=== PATIENT | male | born 1985 | race Hispanic/Latino ===

== ENCOUNTER 2019-10-09 04:07 | Emergency (ER) | payer SELFPAY ==
[2019-10-09 04:08] VITALS: BP 126/81; PULSE 72; RESP 22; TEMP 37; O2SAT 100; BMI 24.4
--- NOTE | 2019-10-09 04:21 | ED.DCSUM_ITS ---
History of Present Illness Chief Complaint: Flank Pain Informant: Patient Narrative: Patient presents with left-sided flank pain that woke him up from sleep just prior to arrival. He has a history of kidney stones, last kidney stone was a few years ago. He has no fever chills cough or congestion. He denies any dysuria or radiation to his testicle at this time he does not have any abdominal pain. He has no chest pain or shortness of breath. Pain is sharp stabbing Past Medical History - Allergies and Home Meds Allergies/Adverse Reactions: Allergies No Known Allergies Allergy (Verified 10/09/19 04:11) Primary Care Physician: Care Physician,No Primary [Primary Care Provider] - Past Medical History: - - Prior kidney stones Surgical History: right inguinal lymph node Smoking Status: Current every day smoker Review of Systems All systems negative except as indicated General: Denies: Fever Cardiovascular: Denies: Chest pain Respiratory: Denies: Dyspnea, Cough Gastrointestinal: Reports: Nausea, - - Flank pain as in HPI. Denies: Abdominal pain, Vomiting, Diarrhea, Constipation Genitourinary: Denies: Dysuria, Hematuria Musculoskeletal: Denies: Myalgias, Arthralgias, Neck pain Skin: Denies: Rash Neurological: Denies: Weakness, Parasthesia Endocrine: Denies: Polyuria Hematologic: Denies: Easy bruising, Easy bleeding Allergy: Denies: Uticaria Physical Exam Vital Signs/Narrative: Vital Signs Temp Pulse Resp BP Pulse Ox 10/09/19 04:08 98.6 F 72 22 H 126/81 H 100 General: - - Patient appears in some distress he appears quite uncomfortable in the bed Head: Normocephalic, Atraumatic ENT: Moist mucous membranes Cardiovascular: Regular rate, Regular rhythm Respiratory: No distress, CTA bilaterally Abdomen: Soft, Nontender, - - He has left CVA tenderness although not really reproducible Back: Nontender, Normal Inspection, CVA tenderness. Negative for: Spinal tenderness Extremities: Nontender. Negative for: No edema Skin: Normal color Neurological: Normal Strength, Normal Sensation Psychological: Normal affect Diagnostic/Tx/Re-eval - Medical Decision Making Patient is found to have an obstructive 6 mm stone in the right UVJ patient received multiple rounds of analgesics with minimal improvement and only transient improvement in his symptoms. I would like to admit him however there is no urology coverage at this institution this weekend therefore I will transfer him. ED Disposition - Plan for ED Patient: Disposition: [facility] Diagnosis: Kidney stone Referrals: Care Physician,No Primary [Primary Care Provider] -
--- NOTE | 2019-10-09 04:21 | CT_ITS ---
STUDY: CT ABDOMEN AND PELVIS WITHOUT CONTRAST REASON FOR EXAM: Male, 33 years old. LT FLANK PAIN, history of kidney stones. RADIATION DOSAGE (If Supplied By Facility): CTDIvol = ( 6.10 ) mGy, DLP = ( 304.84 ) mGycm TECHNIQUE: Transaxial images were obtained from the dome of the diaphragm to the symphysis pubis without oral contrast, and without intravenous contrast. Sagittal and coronal images were reconstructed. Individualized dose optimization techniques were used for this CT. COMPARISON: None. FINDINGS: The visualized lung bases are unremarkable. The visualized portions of the heart are within normal limits. Normal liver. Normal gallbladder and extrahepatic biliary system. Normal spleen. Normal pancreas. Normal bilateral adrenal glands. There are 2 stones in the right kidney measuring respectively 4 mm and 3 mm. There is a stone in the left kidney measures 3 mm. There is moderate left hydronephrosis due to 6 mm stone in the proximal left ureter at the ureteropelvic junction. Normal visualized stomach. Normal small intestine. Normal colon. The appendix is visualized and appears normal. Normal abdominal aorta. Normal inferior vena cava. Normal retroperitoneum. Normal urinary bladder. Normal abdominal wall. Normal osseous structures. CT/Abdomen/Pelvis without Cont IMPRESSION: There are 2 stones in the right kidney measuring respectively 4 mm and 3 mm without hydronephrosis. There is a stone in the left kidney measures 3 mm. There is moderate left hydronephrosis due to 6 mm stone in the proximal left ureter at the ureteropelvic junction. Electronically Signed: Delbert Goldberg, at 5:44 EDT Tel , Service support ,
[2019-10-09] MEDS: Ondansetron 4 MG/2 ML Vial IV (04:31)
[2019-10-09] MEDS: 0.9% Normal Saline 1,000 ML 1000 ML IV (04:31)
[2019-10-09] MEDS: HYDROmorphone 1 MG/ML Syringe IV (04:31)
[2019-10-09] MEDS: Ketorolac 30 MG/ML Syringe IV (04:32)
[2019-10-09 04:36] VITALS: O2SAT 79
[2019-10-09 04:39] VITALS: O2SAT 97
[2019-10-09 04:39] LABS: Absolute Lymphocyte Count 2.84 X10^3/uL (0.83-4.51); Absolute Neutrophil Count 3.3 X10^3/uL (2.0-7.7); Basophil# 0.04 X10^3/uL; Basophil% 0.6 % (0-1); Eosinophils% 1.4 % (0-5); Hematocrit 44.6 % (40-54); Lymphocyte # 2.84 X10^3/ul (4.0); Lymphocyte % 40.9 % (19-41); Mean Corp Hgb Conc 35.9 g/dL (32-36); Mean Corpuscular Hgb 32.3 pg (27.0-32.0); Mean Corpuscular Volume 90.1 fL (80-94); Mean Platelet Vol. 9.5 fl (6.2-12.0); Monocyte# 0.62 X10^3/uL; Monocyte% 8.9 % (0-10); NRBC Flagged by Analyzer 0 % (0-5); Neutrophil # 3.33 X10^3/uL (2.7-7.7); Neutrophil % 47.9 % (47-70); Platelet Count 303 K/mm3 (150-450); RBC Distribution Width CV 11.6 % (11.6-14.6); RBC Distribution Width SD 37.7 fl (35.1-43.9); Red Blood Count 4.95 M/mm3 (4.6-6.2)
[2019-10-09 05:01] LABS: ALB/GLOB Ratio 1.3 RATIO (0.9-2.4); AST(SGOT) 17 U/L (15-37); Alanine Aminotransfer ALT/SGPT 29 U/L (16-61); Albumin, Serum 4.3 g/dL (3.2-5.0); Alkaline Phosphatase 60 U/L (45-117); Anion Gap 7 (5-15); BUN 15 mg/dL (7-18); BUN/Creat Ratio 12.1 RATIO (10-20); Calcium,Total 9.8 mg/dL (8.5-10.1); Chloride 103 mmol/L (98-107); Creatinine, Serum 1.24 mg/dL (0.70-1.30); EST Glomerular Filtration Rate 71 mL/min (>60); Est Glom Filt Rate - Afr Amer 87 mL/min (>60); Estimated Creatinine Clearance 85.52 ml/min; Globulin 3.4 g/dL (2.2-4.2); Glucose 113 mg/dL (74-106); Potassium 3.2 mmol/L (3.5-5.1); Protein, Total 7.7 g/dL (6.4-8.2); Sodium Level 137 mmol/L (136-145)
[2019-10-09] MEDS: HYDROmorphone 0.5 MG/0.5 ML SYRINGE IV (06:50)
[2019-10-09 07:00] VITALS: BP 115/80; PULSE 69; RESP 15; O2SAT 99
[2019-10-09 07:05] VITALS: BP 115/80; PULSE 69; RESP 15; O2SAT 99
--- NOTE | 2019-10-09 07:10 | ED.RN ---
mother updated per pt request.
== END 2019-10-09 07:18 | disposition short-term general hospital (02) ==
PROVIDERS: Emergency Provider Emergency Medicine
DX: N13.2 Hydronephrosis with renal and ureteral calculous obstruction (principal); F17.200 Nicotine dependence, unspecified, uncomplicated; Z87.442 Personal history of urinary calculi
CPT/HCPCS: 74176; 80053; 85025; 96361; 96374; 96375; 96376; 99285; J7030; A4216; J2405

== ENCOUNTER 2020-09-19 01:51 | Emergency (ER) | payer OTHER, SELFPAY ==
[2020-09-19 01:51] VITALS: BP 152/95; PULSE 74; RESP 18; TEMP 36.2; O2SAT 100; BMI 27.0
--- NOTE | 2020-09-19 01:55 | CT_ITS ---
STUDY: CT ABDOMEN AND PELVIS WITHOUT CONTRAST REASON FOR EXAM: Male, 34 years old. Kidney Stone RADIATION DOSAGE (If Supplied By Facility): CTDIvol = ( 6.83 ) mGy, DLP = ( 373.94 ) mGycm TECHNIQUE: Transaxial images were obtained from the dome of the diaphragm to the symphysis pubis without oral contrast, and without intravenous contrast. Sagittal and coronal images were reconstructed. Individualized dose optimization techniques were used for this CT. COMPARISON: None. FINDINGS: The visualized lung bases are unremarkable. The visualized portions of the heart are within normal limits. Normal liver. Normal gallbladder and extrahepatic biliary system. Normal spleen. Normal pancreas. Normal bilateral adrenal glands. Right mid lower renal pole stone measuring 3 mm. Mild right hydronephrosis and hydroureter due to a mid proximal right ureteral stone measuring 3.2 mm. Normal left kidney. Normal visualized stomach. Normal small intestine. Normal colon. There is non-visualization of the appendix. Normal abdominal aorta. Normal inferior vena cava. Normal retroperitoneum. Normal urinary bladder. Normal visualized prostate gland. Normal abdominal wall. Normal osseous structures. CT/Abdomen/Pelvis without Cont IMPRESSION: Mild right hydronephrosis due to a 3.2 mm stone in the mid proximal right ureter. Small right-sided intrarenal stone in the middle pole measuring 3 mm. Electronically Signed: Peri Agustin MD at 2:48 EDT , Service support ,
--- NOTE | 2020-09-19 02:00 | EX.ED.DYSGE1 ---
HPI History of Present Illness Chief Complaint: Flank Pain Informant: patient Narrative Narrative: 34-year-old male presents to the emergency room with right-sided abdominal pain. Patient states he has a history of kidney stones and this feels similar. Pain began around 1600 hrs. yesterday. It is waxed and waned he woke tonight vomiting. He sees Dr. Segura in [place] for urology. He had stent placement last October. Patient denies any fevers. No testicular pain. [facility] Medical History Kidney stones Home Medications ondansetron 4 mg PO Q6H PRN PRN #15 tab 09/19/20 [Rx Last Taken Unknown] oxycodone-acetaminophen See Rx Instructions .ROUTE .COMPLEX PRN 3 Days #24 tablet 09/19/20 [Rx Last Taken Unknown] tamsulosin 0.4 mg PO DAILY #7 capsule 09/19/20 [Rx Last Taken Unknown] Allergy/AdvReac Type Severity Reaction Status Date / Time No Known Allergies Allergy Verified 09/19/20 01:53 Social History (Updated 09/19/20 @ 02:[address] Shaun Caceres, ) Smoking Status: Current every day smoker tobacco type: e-cigarettes substance use type: does not use ROS ROS ED Constitutional Constitutional ED: Denies chills or weight loss Eyes Eyes: Denies change in vision or diplopia ENT ENT ED: Denies ear pain, rhinorrhea or sore throat Cardiovascular Cardiovascular: Denies chest pain, orthopnea, palpitations or racing heartbeat Respiratory/Chest Respiratory/Chest: Denies cough, dyspnea or orthopnea Gastrointestinal Gastrointestinal: Reports abdominal pain, nausea and vomiting; Denies diarrhea Genitourinary Genitourinary ED: Denies dysuria, hematuria or urinary frequency Musculoskeletal Musculoskeletal: Denies arthralgias or myalgias Integumentary Denies abscess or rash Neurologic Neurologic: Denies headache(s) or weakness Psychiatric Psychiatric: Denies anxiety, depression, suicidal ideation or suicidal thoughts Endocrine Endocrinology: Denies polydipsia, polyphagia or polyuria Allergic/Immunologic Allergic/Immunologic ED: Denies mouth swelling, tongue swelling or urticaria EXAM Physical Exam Narrative Exam Narrative: Patient appears in obvious pain. He is vomiting. Const Vital Signs: 09/19/20 01:51 Temperature 97.1 F L Temperature Source Temporal Pulse Rate 74 Respiratory Rate 18 Blood Pressure 152/95 H Blood Pressure Mean 114 Pulse Ox 100 Oxygen Delivery Method Room Air Positive well nourished and well developed General Appearance ED: well developed HEENT Reports normocephalic, head/scalp atraumatic and moist mucous membranes Eyes PERRL and EOMs intact bilaterally Neck no lymphadenopathy, supple and no JVD Resp normal respiratory effort and clear to auscultation bilaterally Cardio regular rate, regular rhythm and no murmurs GI normal to inspection, nondistended, normoactive bowel sounds and non-tender Palpation: soft Back/Spine no CVA tenderness and normal ROM Extremity normal to inspection General Extremety ED: Negative for edema General Extremity: Negative for edema Neuro oriented x3 and CN's II-XII intact bilaterally Sensorium / Orientation: alert Motor Exam: strength 5/5 throughout Psych mental status grossly normal Mood & Affect: Negative for depressed or tearful Skin no rashes or lesions noted and no wounds MDM MDM MDM Narrative Medical decision making narrative: Patient received IV fluids Zofran and Dilaudid as well as Toradol. White count returns normal at 8.5. Patient's creatinine 1.15. Urinalysis showed 50-100 red blood cells. 0-[address] Negative nitrates. [address] abdomen pelvis without contrast was obtained. This was read by radiology reviewed by myself. There is a 3.2 mm stone in the mid proximal right ureter with mild hydronephrosis and hydroureter. Repeat examination patient is doing better but his states his pain is coming back. He received a dose of Flomax additional dose of Dilaudid. He is doing better on repeat examination. Percocet has worked well for her in the past I will write for this, Flomax, and Zofran. Would encourage him to follow-up with his urologist return if worsening or concerns Lab Data Attestation: I reviewed the patient's lab results. Labs: Laboratory Results - last 24 hr 09/19/20 09/19/20 09/19/20 02:00 02:00 02:58 WBC 8.5 RBC 5.03 Hgb 15.7 Hct 44.3 MCV 88.1 MCH 31.2 MCHC 35.4 RDW Std Deviation 38.6 RDW Coeff of Anabell 11.9 Plt Count 280 MPV 9.6 Immature Gran % (Auto) 0.500 Neut % (Auto) 62.8 Lymph % (Auto) 27.6 Polk % (Auto) 7.5 Eos % (Auto) 1.2 Baso % (Auto) 0.4 Absolute Neuts (auto) 5.4 Absolute Lymphs (auto) 2.35 Nucleated RBC % 0 Sodium 140 Potassium 4.1 Chloride 108 H Carbon Dioxide 22.0 Anion Gap 10 BUN 15 Creatinine 1.15 Estim Creat Clear Calc 91.36 Est GFR (MDRD) Af Amer 94 Est GFR (MDRD) Non-Af 78 BUN/Creatinine Ratio 13.0 Glucose 108 H Calcium 9.4 Urine Color Yellow Urine Clarity Sl. Cloudy Urine pH 8.0 Ur Specific [place] 1.015 Urine Protein Negative Urine Glucose (UA) Normal Urine Ketones 5 H Urine Occult Blood 250 H Urine Nitrite Negative Urine Bilirubin Negative Urine Urobilinogen Normal Ur Leukocyte Esterase 25 H Urine RBC 50-100 SEEN Urine WBC 0-5 SEEN Ur Squamous Epith Cells 0 SEEN Amorphous Sediment 1+ Urine Bacteria 1+ Urine Mucus 0 SEEN Radiography Diagnostic Testing: Radiology Impression Abdomen/Pelvis CT 09/19/20 01:55 IMPRESSION: Mild right hydronephrosis due to a 3.2 mm stone in the mid proximal right ureter. Small right-sided intrarenal stone in the middle pole measuring 3 mm. Electronically Signed: Peri Agustin MD at 2:48 EDT , Service support , Discharge Plan Triage Chief Complaint: Flank Pain ED Provider: Shaun Caceres Dx/Rx/DC Orders Clinical Impression: Ureterolithiasis, Vomiting, Abdominal pain Instructions: ED Kidney Stone w/ Colic Prescriptions: New oxycodone-acetaminophen [oxycodone-acetaminophen] 1 TABLET tablet See Rx Instructions .ROUTE .COMPLEX PRN (Reason: Pain) 3 Days Qty: 24 RF: 0 tamsulosin [tamsulosin] 0.4 MG capsule 0.4 mg PO DAILY Qty: 7 RF: 0 ondansetron [ondansetron] 4 MG tablet 4 mg PO Q6H PRN PRN (Reason: Nausea) Qty: 15 RF: 0 Primary Care Provider: Care Physician,No Primary Referrals: Care Physician,No Primary [Primary Care Provider] - Activity Restrictions/Additional Instructions: Please call Dr. Segura's office for follow-up. Return if worsening or concerns Disposition Disposition: Home, Self Care
[2020-09-19] MEDS: Ondansetron 4 MG/2 ML Vial IV (02:02)
[2020-09-19] MEDS: 0.9% Normal Saline 1,000 ML 250 ML IV (02:03)
[2020-09-19] MEDS: Ketorolac 30 MG/ML Syringe IV (02:03)
[2020-09-19] MEDS: HYDROmorphone 1 MG/ML Syringe IV ×2 (02:04→03:52)
[2020-09-19 02:13] LABS: Absolute Lymphocyte Count 2.35 X10^3/uL (0.83-4.51); Absolute Neutrophil Count 5.4 X10^3/uL (2.0-7.7); Basophil# 0.03 X10^3/uL; Basophil% 0.4 % (0-1); Eosinophils% 1.2 % (0-5); Hematocrit 44.3 % (40-54); Hemoglobin 15.7 g/dL (13.0-16.5); Lymphocyte # 2.35 X10^3/ul (0.83-4.51); Lymphocyte % 27.6 % (19-41); Mean Corp Hgb Conc 35.4 g/dL (32-36); Mean Corpuscular Hgb 31.2 pg (27.0-32.0); Mean Corpuscular Volume 88.1 fL (80-94); Mean Platelet Vol. 9.6 fl (6.2-12.0); Monocyte# 0.64 X10^3/uL; Monocyte% 7.5 % (0-10); NRBC Flagged by Analyzer 0 % (0-5); Neutrophil # 5.36 X10^3/uL (2.7-7.7); Neutrophil % 62.8 % (47-70); POSITIVE COUNT YES; Platelet Count 280 K/mm3 (150-450); RBC Distribution Width CV 11.9 % (11.6-14.6); RBC Distribution Width SD 38.6 fl (35.1-43.9); Red Blood Count 5.03 M/mm3 (4.6-6.2); White Blood Count 8.5 K/mm3 (4.4-11.0)
[2020-09-19 02:20] LABS: Differential Indicated SCAN CRITERIA MET
[2020-09-19 02:24] LABS: Anion Gap 10 (5-15); BUN 15 mg/dL (7-18); Calcium,Total 9.4 mg/dL (8.5-10.1); Chloride 108 mmol/L (98-107); Creatinine, Serum 1.15 mg/dL (0.70-1.30); EST Glomerular Filtration Rate 78 mL/min (>60); Est Glom Filt Rate - Afr Amer 94 mL/min (>60); Estimated Creatinine Clearance 91.36 ml/min; Glucose 108 mg/dL (74-106); Potassium 4.1 mmol/L (3.5-5.1); Sodium Level 140 mmol/L (136-145)
[2020-09-19 03:03] LABS: Color, Urine Yellow (Yellow); Glucose, Dipstick Normal (Normal); Ketone-Dipstick 5 mg/dl (Negative); Leukocyte Esterase-Dipstick 25 /ul (Negative); Nitrite-Dipstick Negative (Negative); Occult Blood-Urine 250 /ul (Negative); Protein-Dipstick Negative (Negative); Specific Gravity, Urine 1.015 (1.002-1.030); Urine Bilirubin Dipstick Negative (Negative); Urine Clarity Sl. Cloudy (Clear); Urine Urobilinogen Normal (Normal)
[2020-09-19 03:04] LABS: Mucous, Urine 0 SEEN /hpf (<or=2+); Squamous Epithelial Cells - UA 0 SEEN /hpf (0-5)
[2020-09-19 03:10] LABS: Amorphous Sediment 1+; Bacteria 1+ /hpf (None Seen); Red Blood Cells-Urine 50-100 SEEN /hpf (0-5); White Blood Cells 0-5 SEEN /hpf (0-5)
[2020-09-19] MEDS: Tamsulosin HCl 0.4 MG Capsule PO (03:55)
[2020-09-19 04:52] VITALS: BP 132/71; PULSE 78; RESP 18; O2SAT 98
== END 2020-09-19 04:53 | disposition home or self-care (01) ==
PROVIDERS: Emergency Provider Emergency Medicine
DX: N20.1 Calculus of ureter (principal); R11.10 Vomiting, unspecified; R10.9 Unspecified abdominal pain; Z87.442 Personal history of urinary calculi
CPT/HCPCS: 74176; 80048; 81001; 85025; 96361; 96374; 96375; 96376; 99285; J7030; A4216; J2405

== ENCOUNTER 2021-05-24 14:09 | Emergency (ER) | payer OTHER, SELFPAY ==
[2021-05-24 14:10] VITALS: BP 140/82; PULSE 95; RESP 16; TEMP 36.6; O2SAT 97; BMI 25.1
--- NOTE | 2021-05-24 14:36 | US_ITS ---
INDICATION: Left testicle pain and swelling for one week duration. EXAMINATION: Ultrasound US Scrotum (Contents) TECHNIQUE: Realtime ultrasound of the testicles was performed with grayscale, Color Doppler and spectral Doppler analysis. COMPARISON: CT abdomen and pelvis without contrast from 09/19/2020. FINDINGS: RIGHT: TESTIS: 3.3 x 3.4 x 2.1 cm. Unremarkable homogeneous echotexture. COLOR DOPPLER: Normal arterial flow present in the testicle with monophasic waveforms. EPIDIDYMIS: Normal in size and echotexture, without focal lesion. [Normal color Doppler flow pattern in the epididymis. HYDROCELE: None. VARICOCELE: None. LEFT: TESTIS: 2.4 x 2.6 x 2.4 cm. Unremarkable homogeneous echotexture. COLOR DOPPLER: Normal arterial flow present in the testicle with monophasic waveforms. EPIDIDYMIS: Slightly enlarged body and tail measuring up to 1.4 cm. The epididymal head is normal. [Increased vascularity to the epididymis. HYDROCELE: Small likely reactive hydrocele. VARICOCELE: None. Additional findings: Questionable right inguinal hernia containing a loop of bowel. US/Testicular with Arterial Flow IMPRESSION: 1. Developing left-sided epididymitis with small likely reactive left hydrocele. 2. Questionable right inguinal hernia containing a loop of bowel. Clinical correlation recommended. Electronically Signed: Steven Corbin, at 16:09 EDT ,
--- NOTE | 2021-05-24 14:37 | EX.ED.GUMALE ---
HPI History of Present Illness Chief Complaint: Male Pain/Injury Narrative Narrative: Patient who denies significant past medical history presents from urgent care for evaluation of left testicular pain that he has had for the last week and a half. He thought it would go away but is getting worse. He states that the area on the backside of his left testicle is swollen and painful to touch. He denies any fever or chills. No dysuria or hematuria. No penile discharge. He is sexually active with his girlfriend. He was told at urgent care that he needed an ultrasound to rule out testicular torsion. No exacerbating or alleviating factors. [facility] Medical History Kidney stones Home Medications doxycycline monohydrate 100 mg PO BID #28 cap 05/24/21 [Rx Last Taken Unknown] hydrocodone-acetaminophen 1 tab PO Q6H PRN 3 Days #10 tab 05/24/21 [Rx Last Taken Unknown] Allergy/AdvReac Type Severity Reaction Status Date / Time No Known Allergies Allergy Verified 05/24/21 14:11 Social History Smoking Status: Current every day smoker tobacco type: e-cigarettes substance use type: does not use ROS ROS ED ROS Narrative Constitutional: No fever, no chills. HEENT: No sore throat. No neck pain. No loss of vision. No rhinorrhea. Cardiovascular: No chest pain. No palpitations. No pedal edema. Respiratory: No cough, no shortness of breath. Abdominal: No abdominal pain. No nausea. No vomiting. Genitourinary: No dysuria. No hematuria. No penile discharge. Left posterior testicular pain and swelling. Musculoskeletal: No myalgias. No arthralgias. Neurologic: No headaches. No dizziness. No lightheadedness. Skin: No rash. No change in color. Psychiatric: No depression. No anxiety. EXAM Physical Exam Narrative Exam Narrative: Afebrile. Vital signs noted. HEENT: Normocephalic. Atraumatic. PERRL, EOMI. Neck soft and supple. No point tenderness or step off. Cardiovascular: Regular rate and rhythm. No murmurs, rubs, or gallops appreciated. Respiratory: No tachypnea. Lungs clear to auscultation bilaterally. Gastrointestinal: Abdomen soft, nontender, with normoactive bowel sounds. No rebound or guarding. Genitourinary: Chaperoned examination reveals mild left epididymal tenderness. Normal testicular lie. No noted penile discharge. No inguinal lymphadenopathy. Neurological: Awake. Alert. Nonfocal, nonlateralizing. Skin: No rash. Normal color. No pallor. Musculoskeletal: No pedal edema. Full range of motion extremities. Const Vital Signs: 05/24/21 14:10 Temperature 98 F Temperature Source Temporal Pulse Rate 95 Respiratory Rate 16 Blood Pressure 140/82 H Blood Pressure Mean 101 Pulse Ox 97 Oxygen Delivery Method Room Air MDM MDM MDM Narrative Medical decision making narrative: Clinically, I do feel that the patient has more of an epididymitis than a testicular torsion given his 1.5 weeks of pain. Ultrasound was obtained along with urinalysis. He was given a [place] tablet for analgesia. His urinalysis does show white cells. His ultrasound shows the beginnings of left epididymitis. They mentioned right inguinal hernia possible but the patient has no pain and no swelling on the right. At this point in time, he will be treated with a prescription for doxycycline for the next 2 weeks. He was given a prescription for Well[place]et tablets for 3 days. He was warned of the effects of nausea, vomiting, drowsiness, and possible addiction and acknowledges an understanding. He will follow up with Dr. Powers with urology. He was told to wear more constricting undergarments. I feel he can be discharged safely home with follow-up. Return instructions to the emergency department were reviewed. Disposition is discharged home in stable condition. Lab Data Labs: Laboratory Results - last 24 hr 05/24/21 14:42 Urine Color Yellow Urine Clarity Sl. Cloudy Urine pH 6.0 Ur Specific [place] 1.025 Urine Protein Negative Urine Glucose (UA) Normal Urine Ketones 50 H Urine Occult Blood Negative Urine Nitrite Negative Urine Bilirubin Negative Urine Urobilinogen Normal Ur Leukocyte Esterase 100 H Urine RBC 0 SEEN Urine WBC 10-25 SEEN Ur Squamous Epith Cells 0-5 SEEN Urine Bacteria 0 SEEN Urine Mucus 0 SEEN Radiography Diagnostic Testing: Clinical Impression(s) from Imaging Studies Testicular Ultrasound 05/24/21 14:36 IMPRESSION: 1. Developing left-sided epididymitis with small likely reactive left hydrocele. 2. Questionable right inguinal hernia containing a loop of bowel. Clinical correlation recommended. Electronically Signed: Steven Alaniz, at 16:09 EDT , Discharge Plan Triage Chief Complaint: Male Pain/Injury ED Provider: Kike Garay Dx/Rx/DC Orders Clinical Impression: Left testicular pain, Epididymitis, left Instructions: ED Epididymitis Prescriptions: New doxycycline monohydrate 100 mg capsule 100 mg PO BID Qty: 28 RF: 0 hydrocodone-acetaminophen 5-325 mg tablet 1 tab PO Q6H PRN (Reason: pain) 3 Days Qty: 10 RF: 0 Primary Care Provider: Care Physician,No Primary Referrals: Steve Powers MD [STAFF PHYSICIAN] - 1 Week if not improving Care Physician,No Primary [Primary Care Provider] - Disposition Disposition: Home, Self Care
[2021-05-24] MEDS: HYDROcodone Bitartrate/Apap 5/325 Tablet PO (14:43)
[2021-05-24 14:54] LABS: Bacteria 0 SEEN /hpf (None Seen); Mucous, Urine 0 SEEN /hpf (<or=2+); Red Blood Cells-Urine 0 SEEN /hpf (0-5)
[2021-05-24 15:02] LABS: Color, Urine Yellow (Yellow); Glucose, Dipstick Normal (Normal); Ketone-Dipstick 50 mg/dl (Negative); Leukocyte Esterase-Dipstick 100 /ul (Negative); Nitrite-Dipstick Negative (Negative); Occult Blood-Urine Negative /ul (Negative); Protein-Dipstick Negative (Negative); Specific Gravity, Urine 1.025 (1.002-1.030); Urine Bilirubin Dipstick Negative (Negative); Urine Clarity Sl. Cloudy (Clear); Urine Urobilinogen Normal (Normal)
[2021-05-24 15:14] LABS: Squamous Epithelial Cells - UA 0-5 SEEN /hpf (0-5); White Blood Cells 10-25 SEEN /hpf (0-5)
[2021-05-24] MEDS: Doxycycline 100 MG CAPSULE PO (16:13)
[2021-05-24 16:24] VITALS: RESP 18
== END 2021-05-24 16:25 | disposition home or self-care (01) ==
PROVIDERS: Emergency Provider Emergency Medicine; Visit Provider Emergency Medicine
DX: N45.1 Epididymitis (principal); N50.812 Left testicular pain; F17.290 Nicotine dependence, other tobacco product, uncomplicated
CPT/HCPCS: 76870; 81001; 93976; 99283

== ENCOUNTER 2021-11-17 10:28 | Emergency (ER) | payer OTHER, SELFPAY ==
[2021-11-17 10:29] VITALS: BP 139/91; PULSE 123; RESP 26; TEMP 36.6; O2SAT 100; BMI 25.8
--- NOTE | 2021-11-17 10:34 | ED.RN ---
PT STATES BECOMING HARDER AND HARDER TO BREATH. PT HYPERVENTILATING IN TRIAGE. PT THEN ON THE PHONE WITH FAMILY. CALMS DOWN THEN BEGINS HYPERVENTILATING AGAIN
--- NOTE | 2021-11-17 10:44 | EDS_ITS ---
HPI History of Present Illness Chief Complaint: Allergic Reaction Informant: patient Narrative Narrative: Patient states he woke up this morning and his skin felt hot. He took his temperature and he was almost 100 even. He feels hot and tingly all over. He has mild headache. He is actually not describing dyspnea to me. He states he is slowly developed hives. These are getting worse. His lips feel full but no change in voice or breathing issues. He cannot think of anything different that he has had. He vapes but does not think there is any different materials he is vaping. He does live at home with a girlfriend with a new baby. He does not know if there is any new compounds he was exposed to. Nothing makes this better or worse but nothing is yet been tried. [facility] Medical History Kidney stones Home Medications doxycycline monohydrate 100 mg capsule 100 mg PO BID #28 caps 05/24/21 [Rx Last Taken Unknown] hydrocodone-acetaminophen 5-325mg 5mg-325mg 1 tab PO Q6H PRN pain 3 days #10 tabs 05/24/21 [Rx Last Taken Unknown] prednisone 20 mg tablet 40 mg PO DAILY 5 days #10 tabs 11/17/21 [Rx Last Taken Unknown] Allergy/AdvReac Type Severity Reaction Status Date / Time No Known Allergies Allergy Verified 11/17/21 10:32 Social History Smoking Status: Current every day smoker tobacco type: e-cigarettes substance use type: does not use ROS ROS ED Constitutional Constitutional ED: Reports chills and subjective; Denies fever(s) Eyes Eyes: Denies blurry vision or change in vision ENT ENT ED: Reports other Details: Fullness of lips ; Denies rhinorrhea or sore throat Cardiovascular Cardiovascular: Reports other Details: Patient's heart rate is quicker but he does not feel this. He is currently at 10 4-1 07 on the monitor ; Denies chest pain, palpitations or racing heartbeat Respiratory/Chest Respiratory/Chest: Denies cough or dyspnea Gastrointestinal Gastrointestinal: Denies nausea or vomiting Musculoskeletal Musculoskeletal: Denies arthralgias or myalgias Integumentary Reports rash Neurologic Neurologic: Reports paresthesias and other Details: Diffuse sense of tingling or paresthesias. ; Denies weakness Psychiatric Psychiatric: Reports anxiety Endocrine Endocrinology: Denies polydipsia or polyuria Hematologic/Lymphatic Hematologic/Lymphatic: Denies easy bleeding, easy bruising or lymphadenopathy Allergic/Immunologic Allergic/Immunologic ED: Reports urticaria and other Details: He does feel as though his lips are swelling. ; Denies mouth swelling or tongue swelling EXAM Physical Exam Const Vital Signs: 11/17/21 10:29 Temperature 98 F Temperature Source Temporal Pulse Rate 123 H Respiratory Rate 26 H Blood Pressure 139/91 H Blood Pressure Mean 107 Pulse Ox 100 Oxygen Delivery Method Room Air Positive well nourished and well developed General Appearance ED: well developed and NAD; Negative for cyanotic or diaphoretic HEENT Reports moist mucous membranes HEENT Narrative: No intraoral swelling. Voice is normal. Eyes General Eye ED: Negative for scleral icterus Neck Neck Narrative: No stridor Chest Wall inspection of chest normal and palpation of chest normal Resp normal respiratory effort and clear to auscultation bilaterally Auscultation: Negative for wheezes Cardio regular rhythm Rate: tachycardic GI normal to inspection, nondistended, normoactive bowel sounds and non-tender Back/Spine no CVA tenderness Extremity normal to inspection Neuro oriented x3 Psych Mood & Affect: anxious Skin Skin Narrative: Diffuse hives all over his body. MDM MDM MDM Narrative Medical decision making narrative: Patient is checked. His hives are completely resolved. He has no itch burning headache or any symptoms at all. He would like to go home. He cannot think what caused this. He has Lazara at home which she will take. I told him to get Pepcid take it once a day for 5 days. I will write for some steroids for short time because of the degree of hives that he had. We discussed reasons to return. Discharge Plan Triage Chief Complaint: Allergic Reaction ED Provider: Sherif Mae Dx/Rx/DC Orders Clinical Impression: Urticaria Instructions: ED Hives (Adult) Prescriptions: New prednisone 20 mg tablet 40 mg PO DAILY 5 Days Qty: 10 0RF No Action doxycycline monohydrate 100 mg capsule 100 mg PO BID Qty: 28 0RF hydrocodone-acetaminophen 5-325 mg tablet 1 tab PO Q6H PRN (Reason: pain) 3 Days Qty: 10 0RF Primary Care Provider: Care Physician,No Primary Referrals: Eddy Friedman MD [Med Staff - Active Staff] - 3-5 Days if not improving Care Physician,No Primary [Primary Care Provider] - Disposition Disposition: Home, Self Care
[2021-11-17] MEDS: 0.9% Normal Saline 1,000 ML 999 ML IV (10:51)
[2021-11-17] MEDS: MethylPREDNISolone 125 MG/2 ML Vial IV (10:51)
[2021-11-17] MEDS: DiphenhydrAMINE 50 MG/ML Syringe IV (10:51)
[2021-11-17] MEDS: Famotidine 200 MG/20 ML MDV 20 MG in 0.9% Normal Saline (Pres. free 8 ML 300 MG IV (10:52)
--- NOTE | 2021-11-17 11:47 | ED.RN ---
PT RESTING COMFORTABLY. HIVES NOT NOTED A THIS TIME.
[2021-11-17 13:09] VITALS: PULSE 95; RESP 16; O2SAT 99
== END 2021-11-17 13:13 | disposition home or self-care (01) ==
PROVIDERS: Emergency Provider Emergency Medicine; Visit Provider Emergency Medicine
DX: L50.9 Urticaria, unspecified (principal); F17.290 Nicotine dependence, other tobacco product, uncomplicated
CPT/HCPCS: 96361; 96374; 96375; 99283; A4216; J3490

== ENCOUNTER → 2022-03-07 | Outpatient (CLI) | payer OTHER, SELFPAY ==
[2022-03-07 18:48] LABS: Thyroid Stim Hormone (TSH) 1.77 uIU/mL (0.358-3.74)
== END | disposition home or self-care (01) ==
LOC: MFPLAB 16:05
PROVIDERS: Family Medicine; PCP Family Medicine; Referring Provider Family Medicine; Visit Provider Family Medicine
DX: L50.9 Urticaria, unspecified (principal); F41.9 Anxiety disorder, unspecified
CPT/HCPCS: 36415; 84443; 86003; 86005

== ENCOUNTER 2023-07-02 08:52 | Emergency (ER) | payer SELFPAY ==
[2023-07-02 08:53] VITALS: BP 125/50; PULSE 105; RESP 20; TEMP 30.1; O2SAT 99; BMI 26.2
--- NOTE | 2023-07-02 09:03 | CT_ITS ---
STUDY: CT ABDOMEN AND PELVIS WITHOUT CONTRAST REASON FOR EXAM: Male, 37 years old. Kidney Stone. Right-sided flank pain. Previous stent placement. RADIATION DOSAGE (If Supplied By Facility): CTDIvol = ( 6.95 ) mGy, DLP = ( 373.17 ) mGycm TECHNIQUE: Transaxial images were obtained from the dome of the diaphragm to the symphysis pubis without oral contrast, and without intravenous contrast. Sagittal and coronal images were reconstructed. Individualized dose optimization techniques were used for this CT. COMPARISON: Comparison is made with prior study dated September 19, 2020. FINDINGS: The visualized lung bases are unremarkable. The visualized portions of the heart are within normal limits. Normal liver. Normal gallbladder and extrahepatic biliary system. Normal spleen. Normal pancreas. Normal bilateral adrenal glands. There is engorgement of the right kidney. Mild degree of right hydronephrosis and right proximal hydroureter due to a 3.5 mm calculus in the proximal portion of the right ureter. Tiny nonobstructive intrarenal calculus in the lower pole of the left kidney. Normal visualized stomach. Normal small intestine. Normal colon. The appendix is visualized and appears normal. Normal abdominal aorta. Normal inferior vena cava. Normal retroperitoneum. Normal urinary bladder. Normal abdominal wall. Normal osseous structures. CT/Abdomen/Pelvis without Cont IMPRESSION: 3.5 mm calculus in the proximal portion of the right ureter causing a mild degree of right hydronephrosis and proximal right hydroureter. Tiny nonobstructive calculus in the left kidney. Electronically Signed: Juan F Astudillo MD at 10:00 EDT ,
--- NOTE | 2023-07-02 09:05 | EDS_ITS ---
HPI History of Present Illness Chief Complaint: Flank Pain Informant: patient Onset/Context/Timing Onset: Days Context: Gradual Onset Current Severity: Severe Maximum Severity: Severe Narrative Narrative: Patient presents secondary to right flank pain. He has had waxing and waning pain for the past several days with a history of multiple kidney stones. He states they are typically small and he can pass them on his own. He has required surgery with stent placement in the past. Patient states this morning his pain was more severe. While driving to the emergency room had to ear pull machine operator secondary to nausea and dizziness. PFSH PFS Medical History Kidney stones Home Medications hydrocodone-acetaminophen 5-325mg 5mg-325mg 1 tab PO Q6H PRN PRN Pain 3 days #10 TABLETS 07/02/23 [Rx Last Taken Unknown] ibuprofen 600 mg tablet 600 mg PO Q6H PRN PRN pain #20 TABLETS 07/02/23 [Rx Last Taken Unknown] ondansetron 4 mg disintegrating tablet 4 mg PO Q8H PRN PRN Nausea #10 tabs 07/02/23 [Rx Last Taken Unknown] Allergy/AdvReac Type Severity Reaction Status Date / Time No Known Allergies Allergy Verified 07/02/23 08:52 Social History Smoking Status: Current every day smoker tobacco type: e-cigarettes substance use type: does not use ROS ROS ED Constitutional Constitutional ED: Denies chills or fever(s) Eyes Eyes: Denies change in vision or discharge from eye(s) ENT ENT ED: Denies discharge from eye(s), rhinorrhea or sore throat Cardiovascular Cardiovascular: Denies chest pain or palpitations Respiratory/Chest Respiratory/Chest: Denies cough or dyspnea Gastrointestinal Gastrointestinal: Reports abdominal pain and nausea; Denies diarrhea or vomiting Genitourinary Genitourinary ED: Denies dysuria Musculoskeletal Musculoskeletal: Reports back pain; Denies extremity pain Integumentary Denies Abrasions or rash Neurologic Neurologic: Denies headache(s) or weakness Allergic/Immunologic Allergic/Immunologic ED: Denies lip swelling or urticaria EXAM Physical Exam Const Vital Signs: 07/02/23 08:53 07/02/23 09:18 07/02/23 10:36 Temperature 86.2 F L 97.9 F Temperature Source Temporal Oral Pulse Rate 105 H 70 Respiratory Rate 20 H 16 Blood Pressure 125/50 H 97/57 L Blood Pressure Mean 75 70 Pulse Ox 99 100 Oxygen Delivery Method Room Air Room Air 07/02/23 12:00 07/02/23 12:27 Temperature Temperature Source Pulse Rate 74 64 Respiratory Rate 18 14 Blood Pressure 158/90 H 113/54 L Blood Pressure Mean 112 73 Pulse Ox 96 99 Oxygen Delivery Method Room Air Room Air Positive well nourished and well developed General Appearance ED: well developed HEENT Reports moist mucous membranes Eyes EOMs intact bilaterally Chest Wall inspection of chest normal and palpation of chest normal Resp normal respiratory effort and clear to auscultation bilaterally Cardio regular rhythm Rate: tachycardic GI GI Narrative: Abdomen soft with no reproducible tenderness. Back/Spine General Back: CVA tenderness right Extremity normal to inspection Neuro oriented x3 Psych Mood & Affect: anxious Skin no rashes or lesions noted MDM MDM MDM Narrative Medical decision making narrative: IV line established. Patient given morphine, Toradol, Zofran, and IV fluids. Labwork obtained to evaluate for leukocytosis, anemia, and electrolyte derangement. Urinalysis obtained to evaluate for infection/hematuria. CT flank obtained to evaluate for ureteral stone. History & Record Review Discussion w/independent historian: Patient Lab Data Attestation: I reviewed the patient's lab results. Labs: Laboratory Results - last 24 hr 07/02/23 07/02/23 09:10 12:05 WBC 5.9 RBC 4.98 Hgb 15.2 Hct 45.0 MCV 90.4 MCH 30.5 MCHC 33.8 RDW Std Deviation 39.0 RDW Coeff of [place] 11.9 Plt Count 295 MPV 9.3 Immature Gran % (Auto) 0.300 Neut % (Auto) 53.6 Lymph % (Auto) 36.6 [place] % (Auto) 7.4 Eos % (Auto) 1.3 Baso % (Auto) 0.8 Absolute Neuts (auto) 3.2 Absolute Lymphs (auto) 2.17 Nucleated RBC % 0 Sodium 141 Potassium 4.1 Chloride 108 H Carbon Dioxide 28.0 Anion Gap 5 BUN 13 Creatinine 1.17 Estim Creat Clear Calc 87.28 Est GFR (MDRD) Af Amer 90 Est GFR (MDRD) Non-Af 75 BUN/Creatinine Ratio 11.1 Glucose 78 Calcium 9.4 Urine Color Yellow Urine Clarity Clear Urine pH 7.0 Ur Specific [place] 1.010 Urine Protein Negative Urine Glucose (UA) 250 H Urine Ketones Negative Urine Occult Blood 150 H Urine Nitrite Negative Urine Bilirubin Negative Urine Urobilinogen Normal Ur Leukocyte Esterase 25 H Urine RBC 0 SEEN Urine WBC 0-5 SEEN Ur Squamous Epith Cells 0 SEEN Urine Bacteria 0 SEEN Urine Mucus 0 SEEN Radiography Diagnostic Testing: Clinical Impression(s) from Imaging Studies Abdomen/Pelvis CT 07/02/23 09:03 IMPRESSION: 3.5 mm calculus in the proximal portion of the right ureter causing a mild degree of right hydronephrosis and proximal right hydroureter. Tiny nonobstructive calculus in the left kidney. Electronically Signed: Juan F Astudillo MD at 10:00 EDT , Treatment and Re-Evaluation :: CBC was normal white count 5.9 with normal differential. Hemoglobin is 15.2. Chemistry studies unremarkable with normal renal function. Urinalysis reveals no evidence of infection. CT flank reveals a 3.5 mm calculus in the proximal portion of the right ureter with mild hydronephrosis. Patient has required multiple doses of pain and nausea medication here. At this time patient is comfortable with discharge to home and analgesics. He is referred to Dr. Powers for follow-up. Return instructions were also given. Discharge Plan Triage Chief Complaint: Flank Pain ED Provider: Aylin Yañez Dx/Rx/DC Orders Clinical Impression: Ureterolithiasis Instructions: ED Kidney Stone with Pain Prescriptions: New hydrocodone-acetaminophen 5-325 mg tablet 1 tab PO Q6H PRN PRN (Reason: Pain) 3 Days Qty: 10 0RF ibuprofen 600 mg tablet 600 mg PO Q6H PRN PRN (Reason: pain) Qty: 20 0RF ondansetron 4 mg tablet,disintegrating 4 mg PO Q8H PRN PRN (Reason: Nausea) Qty: 10 0RF Primary Care Provider: Harshad Chun Referrals: Harshad Chun MD [Primary Care Provider] - Steve Powers MD [Med Staff - Active Staff] - 1 Week if not improving Disposition Disposition: Home, Self Care
[2023-07-02] MEDS: Ondansetron 4 MG/2 ML Vial IV (09:09)
[2023-07-02] MEDS: Ketorolac 30 MG/ML Syringe IV (09:09)
[2023-07-02] MEDS: Morphine 4 MG/ML Syringe IV ×2 (09:09→12:25)
[2023-07-02 09:18] VITALS: TEMP 36.6
[2023-07-02 09:19] LABS: Absolute Lymphocyte Count 2.17 X10^3/uL (0.83-4.51); Absolute Neutrophil Count 3.2 X10^3/uL (2.0-7.7); Basophil# 0.05 X10^3/uL; Basophil% 0.8 % (0-1); Eosinophil# 0.08 X10^3/uL; Eosinophils% 1.3 % (0-5); Hemoglobin 15.2 g/dL (13.0-16.5); Lymphocyte # 2.17 X10^3/ul (0.83-4.51); Lymphocyte % 36.6 % (19-41); Mean Corp Hgb Conc 33.8 g/dL (32-36); Mean Corpuscular Hgb 30.5 pg (27.0-32.0); Mean Corpuscular Volume 90.4 fL (80-94); Mean Platelet Vol. 9.3 fl (6.2-12.0); Monocyte# 0.44 X10^3/uL; Monocyte% 7.4 % (0-10); NRBC Flagged by Analyzer 0 % (0-5); Neutrophil # 3.17 X10^3/uL (2.7-7.7); Neutrophil % 53.6 % (47-70); Platelet Count 295 K/mm3 (150-450); RBC Distribution Width CV 11.9 % (11.6-14.6); Red Blood Count 4.98 M/mm3 (4.6-6.2); White Blood Count 5.9 K/mm3 (4.4-11.0)
[2023-07-02] MEDS: 0.9% Normal Saline (1000mL) 1,000 ML 250 ML IV (09:29)
[2023-07-02 09:32] LABS: Anion Gap 5 (5-15); BUN 13 mg/dL (7-18); BUN/Creat Ratio 11.1 RATIO (10-20); Calcium,Total 9.4 mg/dL (8.5-10.1); Chloride 108 mmol/L (98-107); Creatinine, Serum 1.17 mg/dL (0.70-1.30); EST Glomerular Filtration Rate 75 mL/min (>60); Est Glom Filt Rate - Afr Amer 90 mL/min (>60); Estimated Creatinine Clearance 87.28 ml/min; Glucose 78 mg/dL (74-106); Potassium 4.1 mmol/L (3.5-5.1); Sodium Level 141 mmol/L (136-145)
[2023-07-02 10:36] VITALS: BP 97/57; PULSE 70; RESP 16; O2SAT 100
[2023-07-02] MEDS: HYDROmorphone 0.5 MG/0.5 ML SYRINGE IV (10:36)
[2023-07-02 12:00] VITALS: BP 158/90; PULSE 74; RESP 18; O2SAT 96
[2023-07-02 12:16] LABS: Bacteria 0 SEEN /hpf (None Seen); Mucous, Urine 0 SEEN /hpf (<or=2+); Red Blood Cells-Urine 0 SEEN /hpf (0-5); Squamous Epithelial Cells - UA 0 SEEN /hpf (0-5)
[2023-07-02 12:27] VITALS: BP 113/54; PULSE 64; RESP 14; O2SAT 99
[2023-07-02 12:53] LABS: Color, Urine Yellow (Yellow); Glucose, Dipstick 250 mg/dl (Normal); Ketone-Dipstick Negative (Negative); Leukocyte Esterase-Dipstick 25 /ul (Negative); Nitrite-Dipstick Negative (Negative); Occult Blood-Urine 150 /ul (Negative); Protein-Dipstick Negative (Negative); Urine Bilirubin Dipstick Negative (Negative); Urine Clarity Clear (Clear); Urine Urobilinogen Normal (Normal)
[2023-07-02 13:38] LABS: White Blood Cells 0-5 SEEN /hpf (0-5)
[2023-07-02 13:49] VITALS: BP 126/85; PULSE 80; RESP 14; TEMP 36.6; O2SAT 99
== END 2023-07-02 13:58 | disposition home or self-care (01) ==
PROVIDERS: Emergency Provider Emergency Medicine; PCP Family Medicine; Visit Provider Emergency Medicine
DX: N13.2 Hydronephrosis with renal and ureteral calculous obstruction (principal); F17.290 Nicotine dependence, other tobacco product, uncomplicated
CPT/HCPCS: 74176; 80048; 81001; 85025; 96361; 96374; 96375; 96376; 99282; J7030; A4216; J2405

== ENCOUNTER 2023-08-23 20:44 | Emergency (ER) | payer BC, SELFPAY ==
[2023-08-23 20:44] VITALS: BP 131/81; PULSE 94; RESP 15; TEMP 36.1; O2SAT 100; BMI 25.2
[2023-08-23 21:28] VITALS: BP 149/104; PULSE 89; RESP 17; TEMP 37; O2SAT 98
--- NOTE | 2023-08-23 21:47 | CT_ITS ---
EXAM: CT Abdomen And Pelvis W/O Contrast Injection HISTORY: Pain TECHNIQUE: Routine protocol CT abdomen and pelvis. IV Contrast: None.. Oral contrast: None. RADIATION DOSAGE (If Supplied By Facility): CTDIvol = ( 6.27 ) mGy, DLP = ( 336.81 ) mGycm Individualized dose optimization techniques were used for this CT. COMPARISON: CT abdomen and pelvis 07/02/2023. LIMITATIONS: None. FINDINGS: LOWER CHEST: Included lung bases are clear. LIVER: Grossly unremarkable. GALLBLADDER AND BILIARY TREE: Grossly unremarkable. PANCREAS: Grossly unremarkable. SPLEEN: Grossly unremarkable. ADRENAL GLANDS: Grossly unremarkable. KIDNEYS AND URETERS: There is a 5 mm calculus in the distal right ureter, proximal to the ureterovesical junction. The right ureter is dilated with moderate right hydronephrosis and perinephric stranding and fluid. This may be the same calculus that was noted in the proximal right ureter on the prior study, now more distal location. The hydronephrosis is increased compared to prior. Tiny calculus in the right kidney. Small calculus in the left kidney. No hydronephrosis on the left PERITONEUM: No free air. No free fluid. BOWEL: No bowel obstruction. APPENDIX: Visualized and unremarkable. No evidence of acute appendicitis. VESSELS: Abdominal aorta is normal caliber. REPRODUCTIVE ORGANS: Grossly unremarkable URINARY BLADDER: Minimally distended. ABDOMINAL WALL: Unremarkable. BONES: No acute abnormalities. CT/Abdomen/Pelvis without Cont IMPRESSION: Distal right ureteral 5 mm calculus with moderate right hydroureteronephrosis increased compared to prior study. Bilateral nephrolithiasis. Electronically Signed: Joelle Verdin MD at 22:31 EDT ,
[2023-08-23] MEDS: Ketorolac 30 MG/ML Syringe IV (21:55)
[2023-08-23] MEDS: 0.9% Normal Saline (1000mL) 1,000 ML 999 ML IV (21:55)
[2023-08-23] MEDS: Ondansetron 4 MG/2 ML Vial IV (21:56)
[2023-08-23 22:00] VITALS: BP 134/75; PULSE 89; RESP 17; TEMP 36.6; O2SAT 98
--- NOTE | 2023-08-23 22:01 | EX.ED.DYSGE1 ---
HPI History of Present Illness Chief Complaint: Flank Pain Informant: patient Onset/Context/Timing Onset: Today and Hours (11) Context: Sudden Onset Timing: Continuous Quality: Sharp Location: Right flank Worsened by: Breathing Relieved by: Nothing Narrative Narrative: Patient presents with right flank pain that began today. Patient states he has a history of kidney stones and this pain feels similar to prior kidney stones. Patient states he was talking to his ex-girlfriend and she was asking him if he had any kidney stones recently and shortly after that he said he could feel it break off and started to go down his ureter. Patient states his pain has been constant. Patient states it is sharp. Patient states that he can feel it in his back when he puts his hand back there. Patient states it is worse with breathing. Patient denies any fevers or chills. Patient admits to some nausea and vomiting. Patient denies any dysuria or hematuria. [facility] Medical History (Updated 08/23/23 @ 23:[address] Toño Casillas DO) Ureteral stent present Kidney stones Home Medications ?Medication ?Instructions ?Recorded ?Last Taken ?Type hydrocodone-acetaminophen 5-325mg 1 tab PO Q6H PRN PRN Pain 3 days 07/02/23 Unknown Rx 5mg-325mg #10 TABLETS ibuprofen 600 mg tablet 600 mg PO Q6H PRN PRN pain #20 07/02/23 Unknown Rx TABLETS ondansetron 4 mg disintegrating 4 mg PO Q8H PRN PRN Nausea #10 tabs 07/02/23 Unknown Rx tablet hydrocodone-acetaminophen 5-325mg 1 tab PO Q6H PRN PRN Pain 3 days 08/23/23 Unknown Rx 5mg-325mg #10 TABLETS Allergy/AdvReac Type Severity Reaction Status Date / Time No Known Allergies Allergy Verified 08/23/23 20:49 Surgical History (Updated 08/23/23 @ 22:[address] Toño Casillas DO) Hx of lithotripsy Social History Smoking Status: Current every day smoker tobacco type: e-cigarettes substance use type: does not use ROS ROS ED Constitutional Constitutional ED: Denies chills or fever(s) Eyes Eyes: Denies blurry vision or change in vision ENT ENT ED: Denies rhinorrhea or sore throat Cardiovascular Cardiovascular: Denies chest pain or palpitations Respiratory/Chest Respiratory/Chest: Reports dyspnea; Denies cough Gastrointestinal Gastrointestinal: Reports nausea and vomiting Genitourinary Genitourinary ED: Denies dysuria or hematuria Musculoskeletal Musculoskeletal: Reports back pain; Denies neck pain Integumentary Denies abscess or rash Neurologic Neurologic: Denies headache(s) or weakness Allergic/Immunologic Allergic/Immunologic ED: Denies mouth swelling or urticaria EXAM Physical Exam Const Vital Signs: 08/23/23 20:44 08/23/23 21:28 08/23/23 22:00 Temperature 97.0 F L 98.6 F 98 F Temperature Source Temporal Oral Oral Pulse Rate 94 89 89 Respiratory Rate 15 17 17 Blood Pressure 131/81 H 149/104 H 134/75 H Blood Pressure Mean 97 119 94 Pulse Ox 100 98 98 Oxygen Delivery Method Room Air Room Air Room Air 08/23/23 23:04 Temperature 98.1 F Temperature Source Temporal Pulse Rate 77 Respiratory Rate 17 Blood Pressure 146/84 H Blood Pressure Mean 104 Pulse Ox 97 Oxygen Delivery Method Room Air Positive well nourished and well developed General Appearance ED: well developed and NAD HEENT Reports moist mucous membranes Neck supple and no JVD Resp normal respiratory effort and clear to auscultation bilaterally Cardio regular rate and regular rhythm GI non-distended Palpation: soft and tender RLQ; Negative for guarding or rebound tenderness present Back/Spine General Back: CVA tenderness right Neuro oriented x3, CN's II-XII intact bilaterally and no sensory deficits noted Sensorium / Orientation: alert Motor Exam: strength 5/5 throughout MDM MDM MDM Narrative Medical decision making narrative: Differential diagnosis includes ureteral calculus, pyelonephritis, urinary tract infection, appendicitis, and gastroenteritis. CT scan of the abdomen and pelvis will be obtained to assess for ureteral calculus and appendicitis. CBC will be obtained to assess for leukocytosis and anemia. Basic metabolic profile will be obtained to assess for electrolyte abnormality and renal function. Urinalysis will be obtained to assess for urinary tract infection and hematuria. Lab Data Attestation: I reviewed the patient's lab results. Lab results narrative: CBC was reviewed and was within normal limits. Basic metabolic profile was reviewed. BUN was slightly elevated at 21 and creatinine was 1.42. The remainder is within normal limits. Urinalysis was reviewed. Occult blood was 250 with 10-25 red blood cells. There are 0-5 white blood cells noted. Labs: Laboratory Results - last 24 hr 08/23/23 08/23/23 21:34 21:51 WBC 10.2 RBC 4.48 L Hgb 14.1 Hct 40.6 MCV 90.6 MCH 31.5 MCHC 34.7 RDW Std Deviation 39.7 RDW Coeff of Anabell 12.0 Plt Count 312 MPV 10.1 Immature Gran % (Auto) 0.200 Neut % (Auto) 75.7 H Lymph % (Auto) 16.5 L [place] % (Auto) 6.6 Eos % (Auto) 0.5 Baso % (Auto) 0.5 Absolute Neuts (auto) 7.7 Absolute Lymphs (auto) 1.68 Nucleated RBC % 0 Sodium 140 Potassium 4.0 Chloride 108 H Carbon Dioxide 25.0 Anion Gap 7 BUN 21 H Creatinine 1.42 H Estim Creat Clear Calc 71.92 Est GFR (MDRD) Af Amer 72 Est GFR (MDRD) Non-Af 60 BUN/Creatinine Ratio 14.8 Glucose 106 Calcium 9.5 Urine Color Yellow Urine Clarity Clear Urine pH 6.0 Ur Specific [place] 1.025 Urine Protein 30 H Urine Glucose (UA) Normal Urine Ketones Negative Urine Occult Blood 250 H Urine Nitrite Negative Urine Bilirubin Negative Urine Urobilinogen Normal Ur Leukocyte Esterase 25 H Urine RBC 10-25 SEEN Urine WBC 0-5 SEEN Ur Squamous Epith Cells 0 SEEN Urine Bacteria 1+ Urine Mucus RARE Radiography Diagnostic Testing: Clinical Impression(s) from Imaging Studies Abdomen/Pelvis CT 08/23/23 21:47 IMPRESSION: Distal right ureteral 5 mm calculus with moderate right hydroureteronephrosis increased compared to prior study. Bilateral nephrolithiasis. Electronically Signed: Joelle Verdin MD at 22:31 EDT , CT scan of the abdomen pelvis was obtained. There is a right distal ureteral calculus measuring 5 mm with moderate right hydronephrosis. There is bilateral renal calculi. This was interpreted by the radiologist and was also independently reviewed by myself. Treatment and Re-Evaluation :: Patient was given IV fluids, Toradol, and Zofran. Patient was still having pain on reevaluation. Patient was given a dose of morphine here. Patient was advised of his findings. Patient was given a prescription for a short course of [place]. Patient was also given a prescription for Flomax. Patient was given a referral for urology. Patient was instructed to follow-up with his primary care physician and urologist in 5 to 7 days. Patient was instructed to return if worse in any way. Patient understood and was agreeable with the plan. All questions were answered. Discharge Plan Triage Chief Complaint: Flank Pain ED Provider: Toño Casillas Dx/Rx/DC Orders Clinical Impression: Ureterolithiasis, Abdominal pain Instructions: ED Kidney Stone with Pain Prescriptions: New hydrocodone-acetaminophen 5-325 mg tablet 1 tab PO Q6H PRN PRN (Reason: Pain) 3 Days Qty: 10 0RF No Action hydrocodone-acetaminophen 5-325 mg tablet 1 tab PO Q6H PRN PRN (Reason: Pain) 3 Days Qty: 10 0RF ibuprofen 600 mg tablet 600 mg PO Q6H PRN PRN (Reason: pain) Qty: 20 0RF ondansetron 4 mg tablet,disintegrating 4 mg PO Q8H PRN PRN (Reason: Nausea) Qty: 10 0RF Primary Care Provider: Harshad Chun Referrals: Harshad Chun MD [Primary Care Provider] - 3-5 Days Steve Powers MD [Med Staff - Active Staff] - 3-5 Days Print Language: [place] Ver[place] Disposition Disposition: Home, Self Care
[2023-08-23 22:05] LABS: Squamous Epithelial Cells - UA 0 SEEN /hpf (0-5)
[2023-08-23 22:10] LABS: Color, Urine Yellow (Yellow); Glucose, Dipstick Normal (Normal); Ketone-Dipstick Negative (Negative); Leukocyte Esterase-Dipstick 25 /ul (Negative); Nitrite-Dipstick Negative (Negative); Occult Blood-Urine 250 /ul (Negative); Protein-Dipstick 30 mg/dl (Negative); Specific Gravity, Urine 1.025 (1.002-1.030); Urine Bilirubin Dipstick Negative (Negative); Urine Clarity Clear (Clear); Urine Urobilinogen Normal (Normal)
[2023-08-23 22:13] LABS: Absolute Lymphocyte Count 1.68 X10^3/uL (0.83-4.51); Absolute Neutrophil Count 7.7 X10^3/uL (2.0-7.7); Basophil# 0.05 X10^3/uL; Basophil% 0.5 % (0-1); Eosinophil# 0.05 X10^3/uL; Eosinophils% 0.5 % (0-5); Hematocrit 40.6 % (40-54); Hemoglobin 14.1 g/dL (13.0-16.5); Lymphocyte # 1.68 X10^3/ul (0.83-4.51); Lymphocyte % 16.5 % (19-41); Mean Corp Hgb Conc 34.7 g/dL (32-36); Mean Corpuscular Hgb 31.5 pg (27.0-32.0); Mean Corpuscular Volume 90.6 fL (80-94); Mean Platelet Vol. 10.1 fl (6.2-12.0); Monocyte# 0.67 X10^3/uL; Monocyte% 6.6 % (0-10); NRBC Flagged by Analyzer 0 % (0-5); Neutrophil % 75.7 % (47-70); Platelet Count 312 K/mm3 (150-450); RBC Distribution Width SD 39.7 fl (35.1-43.9); Red Blood Count 4.48 M/mm3 (4.6-6.2); White Blood Count 10.2 K/mm3 (4.4-11.0)
[2023-08-23 22:17] LABS: Bacteria 1+ /hpf (None Seen); Mucous, Urine RARE /hpf (<or=2+); Red Blood Cells-Urine 10-25 SEEN /hpf (0-5); White Blood Cells 0-5 SEEN /hpf (0-5)
[2023-08-23 22:24] LABS: Anion Gap 7 (5-15); BUN 21 mg/dL (7-18); BUN/Creat Ratio 14.8 RATIO (10-20); Calcium,Total 9.5 mg/dL (8.5-10.1); Chloride 108 mmol/L (98-107); Creatinine, Serum 1.42 mg/dL (0.70-1.30); EST Glomerular Filtration Rate 60 mL/min (>60); Est Glom Filt Rate - Afr Amer 72 mL/min (>60); Estimated Creatinine Clearance 71.92 ml/min; Glucose 106 mg/dL (74-106); Sodium Level 140 mmol/L (136-145)
[2023-08-23] MEDS: Morphine 4 MG/ML Syringe IV (22:40)
[2023-08-23 23:04] VITALS: BP 146/84; PULSE 77; RESP 17; TEMP 36.7; O2SAT 97
[2023-08-23 23:23] VITALS: BP 140/84; PULSE 70; RESP 17; TEMP 36.6; O2SAT 99
== END 2023-08-23 23:24 | disposition home or self-care (01) ==
PROVIDERS: Emergency Provider Emergency Medicine; PCP Family Medicine; Visit Provider Emergency Medicine
DX: N20.1 Calculus of ureter (principal); F17.290 Nicotine dependence, other tobacco product, uncomplicated
CPT/HCPCS: 74176; 80048; 81001; 85025; 96361; 96374; 96375; 99284; J7030; A4216; J2405

== ENCOUNTER 2023-10-20 14:10 | Outpatient (RCR) | payer BC, SELFPAY ==
[2023-10-20 15:31] LABS: Amphetamine Urine VISTA POSITIVE (<1000 ng/mL); Barbiturate Urine VISTA NEGATIVE (< 200 ng/mL); Benzodiazepine Urine VISTA NEGATIVE (< 200 ng/mL); Cocaine Urine VISTA NEGATIVE (< 300 ng/mL); Ecstacy Urine VISTA NEGATIVE (< 500 ng/mL); Methadone Urine VISTA NEGATIVE (< 300 ng/mL); PCP Urine VISTA NEGATIVE (< 25 ng/mL); THC Urine VISTA NEGATIVE (< 50 ng/mL); Vista UDS pH Range 5
[2023-10-20 16:10] LABS: AST(SGOT) 25 U/L (15-37); Alanine Aminotransfer ALT/SGPT 46 U/L (16-61); Albumin, Serum 3.7 g/dL (3.2-5.0); Alkaline Phosphatase 62 U/L (45-117); Anion Gap 6 (5-15); BUN 15 mg/dL (7-18); BUN/Creat Ratio 16.7 RATIO (10-20); Calcium,Total 9.2 mg/dL (8.5-10.1); Chloride 106 mmol/L (98-107); EST Glomerular Filtration Rate 101 mL/min (>60); Est Glom Filt Rate - Afr Amer 123 mL/min (>60); Globulin 3.7 g/dL (2.2-4.2); Glucose 102 mg/dL (74-106); Potassium 3.8 mmol/L (3.5-5.1); Protein, Total 7.4 g/dL (6.4-8.2); Sodium Level 138 mmol/L (136-145)
== END 2023-10-20 18:00 | disposition home or self-care (01) ==
LOC: LAB 14:10
PROVIDERS: PCP Family Medicine
DX: F11.20 Opioid dependence, uncomplicated (principal); Z13.29 Encounter for screening for other suspected endocrine disorder; Z11.3 Encounter for screening for infections with a predominantly sexual mode of transmission; Z11.59 Encounter for screening for other viral diseases; Z13.228 Encounter for screening for other metabolic disorders
CPT/HCPCS: 36415; 80053; 80307

== ENCOUNTER 2023-12-04 15:18 | Emergency (ER) | payer SELFPAY ==
[2023-12-04 15:18] VITALS: BP 134/89; PULSE 91; RESP 14; TEMP 36.1; O2SAT 100; BMI 23.7
[2023-12-04] MEDS: Tetracaine 0.5% Ophthalmic Bottle 1 DRP EACH EYE (16:14)
[2023-12-04] MEDS: Fluorescein 1 MG STRIP 1 STRIP EACH EYE (16:14)
--- NOTE | 2023-12-04 16:33 | EDS_ITS ---
HPI History of Present Illness Chief Complaint: Eye Problem Informant: patient Narrative Narrative: 37-year-old male presenting to the emergency room chief complaint of contact lens stuck in the eye. Patient states he typically sleeps in his contacts. He changes his contacts daily. He feels it is stuck on the inferior medial aspect of the right eye. He has tried washing his eye and has been unsuccessful at relieving it. He states he sees Ashlyn for ophthalmology. Symptoms began today. PFSH PFSH Medical History Ureteral stent present Kidney stones Home Medications ?Medication ?Instructions ?Recorded ?Last Taken ?Type dextroamphetamine-amphetamine ER 1 cap PO DAILY 12/04/23 Unknown History 10 mg 24hr capsule,extend release Allergy/AdvReac Type Severity Reaction Status Date / Time No Known Allergies Allergy Verified 12/04/23 15:19 Surgical History Hx of lithotripsy Social History Smoking Status: Current every day smoker tobacco type: e-cigarettes substance use type: does not use ROS ROS ED Constitutional Constitutional ED: Denies chills or weight loss Eyes Eyes: Reports blurry vision, change in vision and other Details: FB Sensation ; Denies diplopia ENT ENT ED: Denies ear pain, rhinorrhea or sore throat Cardiovascular Cardiovascular: Denies chest pain, orthopnea, palpitations or racing heartbeat Respiratory/Chest Respiratory/Chest: Denies cough, dyspnea or orthopnea Gastrointestinal Gastrointestinal: Denies abdominal pain, diarrhea, nausea or vomiting Genitourinary Genitourinary ED: Denies dysuria, hematuria or urinary frequency Musculoskeletal Musculoskeletal: Denies arthralgias or myalgias Integumentary Denies abscess or rash Neurologic Neurologic: Denies headache(s) or weakness Psychiatric Psychiatric: Denies anxiety, depression, suicidal ideation or suicidal thoughts Endocrine Endocrinology: Denies polydipsia, polyphagia or polyuria Allergic/Immunologic Allergic/Immunologic ED: Denies mouth swelling, tongue swelling or urticaria EXAM Physical Exam Const Vital Signs: 12/04/23 15:18 Temperature 97 F L Temperature Source Temporal Pulse Rate 91 Respiratory Rate 14 Blood Pressure 134/89 H Blood Pressure Mean 104 Pulse Ox 100 Oxygen Delivery Method Room Air Positive well nourished and well developed General Appearance ED: well developed HEENT Reports normocephalic, head/scalp atraumatic and moist mucous membranes Eyes PERRL and EOMs intact bilaterally Eyes Narrative: Injected Conjunctiva on Right, Small Medial upper lid stye, No corneal abrasion on staining, No obvious FB noted with eversion of lids. No FB Seen on eye lid sweep with qtip Neck no lymphadenopathy, supple and no JVD Resp normal respiratory effort and clear to auscultation bilaterally Cardio regular rate, regular rhythm and no murmurs GI normal to inspection, nondistended, normoactive bowel sounds and non-tender Palpation: soft Back/Spine no CVA tenderness and normal ROM Extremity normal to inspection General Extremety ED: Negative for edema General Extremity: Negative for edema Neuro oriented x3 and CN's II-XII intact bilaterally Sensorium / Orientation: alert Motor Exam: strength 5/5 throughout Psych mental status grossly normal Mood & Affect: Negative for depressed or tearful Skin no rashes or lesions noted and no wounds MDM MDM MDM Narrative Medical decision making narrative: Differential diagnosis includes but not limited to corneal abrasion retained contact lens conjunctival irritation conjunctival abrasion Tetracaine instilled into the eye. I was able to sulaiman the eyelids I do not see an obvious foreign body particularly to the exact place where he points as he is feeling it. There is some mild swelling of the conjunctiva and the eyelid tissue medially. There appears to be an early stye on the upper right. The patient medial lid. There does not appear to be any fluorescein dye uptake of the cornea. Would have the patient use cool compress erythromycin ophthalmic ointment. I will will attempt to speak with ophthalmology tonight but if I am not able to get a follow-up arranged with them advised him to call there tomorrow. History & Record Review Discussion w/independent historian: Patient Management Discussion w/another healthcare provider: Basket Bottom Machine Operator (Dr. Herrera (ophthalmology) Discharge Plan Triage Chief Complaint: Eye Problem ED Provider: Shaun Caceres Dx/Rx/DC Orders Clinical Impression: Conjunctival injection, Foreign body sensation, right eye Prescriptions: No Action dextroamphetamine-amphetamine 10 mg capsule,extended release 24hr 1 cap PO DAILY Primary Care Provider: Harshad Chun Referrals: Harshad Chun MD [Primary Care Provider] - Vani Herrera MD [Med Staff - Active Staff] - 1 Day for another exam Activity Restrictions/Additional Instructions: Eye ointment to right eye 4 times a day. You may also use a cool compress for soothing. Try not to rub your eye or wash your eye. Please see ophthalmology tomorrow if continued symptoms Print Language: Chadian Disposition Disposition: Home, Self Care
[2023-12-04] MEDS: Erythromycin Base 1 OPTH.TUBE 1 APPLIC RIGHT EYE (16:50)
[2023-12-04 16:51] VITALS: BP 135/74; PULSE 74; RESP 16; TEMP 36.2; O2SAT 96
== END 2023-12-04 16:52 | disposition home or self-care (01) ==
PROVIDERS: Emergency Provider Emergency Medicine; PCP Family Medicine; Visit Provider Emergency Medicine
DX: T15.91XA Foreign body on external eye, part unspecified, right eye, initial encounter (principal); F17.290 Nicotine dependence, other tobacco product, uncomplicated; X58.XXXA Exposure to other specified factors, initial encounter
CPT/HCPCS: 99282

== ENCOUNTER 2024-02-13 17:02 | Emergency (ER) | payer SELFPAY ==
[2024-02-13 17:03] VITALS: BP 131/95; PULSE 121; RESP 16; TEMP 36.9; O2SAT 99
[2024-02-13 17:08] VITALS: BMI 24.7
--- NOTE | 2024-02-13 17:19 | US_ITS ---
EXAM: US SCROTUM CLINICAL INDICATION: pain TECHNIQUE: Realtime ultrasound of the testicles was performed with grayscale and Color Doppler analysis. COMPARISON: No relevant prior studies available. FINDINGS: RIGHT TESTICLE: The right testicle measures 2.9 x 3.8 x 2.2 cm. Normal in size and echotexture. No focal lesion. Normal blood flow is present. LEFT TESTICLE: The left testicle measures 2.3 x 3.3 x 1.7 cm. Normal in size and echotexture. No focal lesion. Normal blood flow is present. EPIDIDYMIDES: The right epididymal tail is enlarged measuring 2.0 x 1.4 x 1.1 cm. There is also increased vascularity which may represent epididymitis. The right epididymal head head measures 1.2 x 0.6 x 1.0 cm. The left epididymal head measures 0.9 x 0.6 x 0.7 cm. There is a 2 mm left epididymal cyst. SCROTUM: Unremarkable. No hydrocele. No varicocele. US/Testicular with Arterial Flow IMPRESSION: Enlarged right epididymal tail with increased blood flow compatible with epididymitis. No other abnormalities are identified. There is no evidence of torsion. Electronically Signed: Reagan Soliman MD at 19:40 EST ,
--- NOTE | 2024-02-13 17:20 | ED.RN ---
PT WAS HAVING SEX 3 DAYS AGO WITH BABY BRENDA AND WHILE SHE WAS ON TOP SHE DID SOMETHING THAT CAUSED HIS LEFT TESTICLE SEVERE PAIN AND THE PAIN HAS MOVED TO THE RIGHT. PT HAS BEEN ICING AT HOME AND THE PAIN HAS GOTTEN WORSE. PT DROVE HIMSELF AND WALKED INTO ED. PT WAS NOT ABLE O WALK TO THE BACK ROOM.
--- NOTE | 2024-02-13 17:27 | EX.ED.GUMALE ---
HPI <YONY Estrada - Last Filed: 02/13/24 19:57> History of Present Illness Chief Complaint: Male Pain/Injury Narrative Narrative: 38-year-old male was having sexual intercourse 4 days ago and states his left testicle got smashed. He had pain in the left testicle that gradually moved to the right testicle and today the pain became more severe causing him to vomit. He also noted hematuria. No discharge. PFSH <YONY Estrada - Last Filed: 02/13/24 19:57> PFSH Medical History Ureteral stent present Kidney stones Home Medications ?Medication ?Instructions ?Recorded ?Last Taken ?Type dextroamphetamine-amphetamine ER 1 cap PO DAILY 12/04/23 Unknown History 10 mg 24hr capsule,extend release dextroamphetamine-amphetamine 30 30 mg PO BID 02/13/24 Unknown History mg tablet (Adderall) doxycycline hyclate 100 mg capsule 100 mg PO BID 7 days #14 caps 02/13/24 Unknown Rx naproxen 500 mg tablet (Naprosyn) 500 mg PO BID PRN pain #20 tabs 02/13/24 Unknown Rx Allergy/AdvReac Type Severity Reaction Status Date / Time No Known Allergies Allergy Verified 02/13/24 17:08 Surgical History Hx of lithotripsy Social History Smoking Status: Current every day smoker tobacco type: e-cigarettes substance use type: does not use ROS <YONY Estrada - Last Filed: 02/13/24 19:57> ROS ED ROS Narrative Constitutional: Negative for fever, chills. GI: Positive for vomiting. No abdominal pain. : Positive for hematuria. Skin: Negative for rash. EXAM <YONY Estrada Last Filed: 02/13/24 19:57> Physical Exam Narrative Exam Narrative: CONST: Patient sitting in no acute distress. EYES: Normal inspection. NECK: Normal inspection. RESP: No respiratory distress, CTAB. CVS: Regular rate and rhythm, no murmur, no gallop. ABD: Soft and nontender, no guarding or rebound, nondistended. : Normal external genitalia, diffuse tenderness over both testicles more so on the right, no erythema or warmth, no fluctuance or crepitus. Cremasteric reflex intact. SKIN: Color normal, no rash, warm, dry, intact. EXTREMITIES: Normal appearance, no pedal edema. NEURO: Alert and answering questions appropriately. PSYCH: Normal affect. Const Vital Signs: 02/13/24 17:03 02/13/24 19:03 02/13/24 20:00 Temperature 98.4 F Temperature Source Oral Pulse Rate 121 H 86 82 Respiratory Rate 16 18 16 Blood Pressure 131/95 H 109/63 110/64 Blood Pressure Mean 107 78 79 Pulse Ox 99 99 99 Oxygen Delivery Method Room Air Room Air Room Air 02/13/24 20:33 Temperature 98.4 F Temperature Source Pulse Rate 82 Respiratory Rate 16 Blood Pressure 110/64 Blood Pressure Mean 79 Pulse Ox 99 Oxygen Delivery Method <Dr. Harinder Banks DO - Last Filed: 02/13/24 23:48> Physical Exam Const Vital Signs: 02/13/24 17:03 02/13/24 19:03 02/13/24 20:00 Temperature 98.4 F Temperature Source Oral Pulse Rate 121 H 86 82 Respiratory Rate 16 18 16 Blood Pressure 131/95 H 109/63 110/64 Blood Pressure Mean 107 78 79 Pulse Ox 99 99 99 Oxygen Delivery Method Room Air Room Air Room Air 02/13/24 20:33 Temperature 98.4 F Temperature Source Pulse Rate 82 Respiratory Rate 16 Blood Pressure 110/64 Blood Pressure Mean 79 Pulse Ox 99 Oxygen Delivery Method [facility] <YONY Estrada - Last Filed: 02/13/24 19:57> [facility] Narrative Medical decision making narrative: Differential: Epididymitis, torsion, UTI Patient presents with right scrotal pain. He reports minor trauma to the area during sexual intercourse a few days ago. He appears uncomfortable but nontoxic. Initially heart rate was 121 with otherwise normal vital signs but this did improve after analgesia. He has right scrotal tenderness on exam. There is no signs of cellulitis, abscess, or foreign years gangrene. Urinalysis and ultrasound are consistent with epididymitis. Gonorrhea/Chlamydia cultures are pending and he was treated empirically with IM Rocephin and doxycycline as well as naproxen. He was discharged in stable condition. Lab Data Attestation: I reviewed the patient's lab results. Labs: Laboratory Results - last 24 hr 02/13/24 17:33 Urine Color Yellow Urine Clarity Cloudy Urine pH 7.0 Ur Specific [place] 1.015 Urine Protein 30 H Urine Glucose (UA) Normal Urine Ketones Negative Urine Occult Blood 25 H Urine Nitrite Negative Urine Bilirubin Negative Urine Urobilinogen 1 H Ur Leukocyte Esterase 500 H Urine RBC 0 SEEN Urine WBC >100 SEEN Ur Squamous Epith Cells 0-5 SEEN Urine Bacteria 2+ Urine Mucus 2+ Radiography Diagnostic Testing: Clinical Impression(s) from Imaging Studies Testicular Ultrasound 02/13/24 17:19 IMPRESSION: Enlarged right epididymal tail with increased blood flow compatible with epididymitis. No other abnormalities are identified. There is no evidence of torsion. Electronically Signed: Reagan Soliman MD at 19:40 EST , <Dr. Harinder Banks, DO - Last Filed: 02/13/24 23:48> [facility] MDM Narrative Medical decision making narrative: Differential: Epididymitis, torsion, UTI Patient presents with right scrotal pain. He reports minor trauma to the area during sexual intercourse a few days ago. He appears uncomfortable but nontoxic. Initially heart rate was 121 with otherwise normal vital signs but this did improve after analgesia. He has right scrotal tenderness on exam. There is no signs of cellulitis, abscess, or foreign years gangrene. Urinalysis and ultrasound are consistent with epididymitis. Gonorrhea/Chlamydia cultures are pending and he was treated empirically with IM Rocephin and doxycycline as well as naproxen. He was discharged in stable condition. Attending note: I have personally performed a face to face assessment of the patient and have reviewed the KADEN note. I personally made/approved the management plan and take responsibility for the patient management. I performed a substantive portion of the visit including all aspects of the following. My thomas findings include: History of seeing pain scrotum after intercourse 4 days ago. States had trauma left scrotum pain now to the right. No blood in his urine the following day. Denies any penile injury. No history of similar. Exam patient uncomfortable tender epididymis right and left. No scrotal swelling no ecchymosis. Uncircumcised, no penile ecchymosis. No drainage. Treated for his pain Toradol oxycodone. Urine noting greater than 100 white cells and leukocytes. Ultrasound positive for epididymitis. No torsion.. She GC chlamydia pending. Treat empirically with IM Rocephin and doxycycline. Outpatient follow-up with urology. Lab Data Labs: Laboratory Results - last 24 hr 02/13/24 17:33 Urine Color Yellow Urine Clarity Cloudy Urine pH 7.0 Ur Specific [place] 1.015 Urine Protein 30 H Urine Glucose (UA) Normal Urine Ketones Negative Urine Occult Blood 25 H Urine Nitrite Negative Urine Bilirubin Negative Urine Urobilinogen 1 H Ur Leukocyte Esterase 500 H Urine RBC 0 SEEN Urine WBC >100 SEEN Ur Squamous Epith Cells 0-5 SEEN Urine Bacteria 2+ Urine Mucus 2+ Radiography Diagnostic Testing: Clinical Impression(s) from Imaging Studies Testicular Ultrasound 02/13/24 17:19 IMPRESSION: Enlarged right epididymal tail with increased blood flow compatible with epididymitis. No other abnormalities are identified. There is no evidence of torsion. Electronically Signed: Reagan Soliman MD at 19:40 EST , Discharge Plan Triage Chief Complaint: Male Pain/Injury ED Midlevel Provider: Neva Matamoros ED Provider: Harinder Banks Dx/Rx/DC Orders Clinical Impression: Epididymitis, Pain in scrotum Instructions: ED Epididymitis Prescriptions: New doxycycline hyclate 100 mg capsule 100 mg PO BID 7 Days Qty: 14 0RF naproxen [Naprosyn] 500 mg tablet 500 mg PO BID PRN (Reason: pain) Qty: 20 0RF No Action dextroamphetamine-amphetamine [Adderall] 30 mg tablet 30 mg PO BID Rx Instructions: administer doses at least 4-6 hours apart dextroamphetamine-amphetamine 10 mg capsule,extended release 24hr 1 cap PO DAILY Primary Care Provider: Care Physician,No Primary Referrals: Harshad Chun MD [Med Staff - [employer]ric[employer] Supervisor] - Steve Powers MD [Med Staff - Active Staff] - Activity Restrictions/Additional Instructions: Your ultrasound shows epididymitis which is an infection in the scrotum often caused by a sexually transmitted disease. It is treated with antibiotics. I also prescribed naproxen you can take twice a day for pain. For additional pain control you can try [id number] Tylenol 1000 mg every 6 hours and wear tight fitting briefs for scrotal support. Follow-up with the urologist. Print Language: [place]an Disposition Disposition: Home, Self Care Discharge Date/Time: 02/13/24 21:04
[2024-02-13] MEDS: Ondansetron 4 MG/2 ML Vial IV (17:31)
[2024-02-13] MEDS: Ketorolac 15 MG/ML Vial IV (17:31)
[2024-02-13 17:42] LABS: Red Blood Cells-Urine 0 SEEN /hpf (0-5)
[2024-02-13 17:46] LABS: Color, Urine Yellow (Yellow); Glucose, Dipstick Normal (Normal); Ketone-Dipstick Negative (Negative); Leukocyte Esterase-Dipstick 500 /ul (Negative); Nitrite-Dipstick Negative (Negative); Occult Blood-Urine 25 /ul (Negative); Protein-Dipstick 30 mg/dl (Negative); Specific Gravity, Urine 1.015 (1.002-1.030); Urine Bilirubin Dipstick Negative (Negative); Urine Clarity Cloudy (Clear); Urine Urobilinogen 1 mg/dl (Normal)
[2024-02-13 18:40] LABS: Bacteria 2+ /hpf (None Seen); Mucous, Urine 2+ /hpf (<or=2+); Squamous Epithelial Cells - UA 0-5 SEEN /hpf (0-5); White Blood Cells >100 SEEN /hpf (0-5)
[2024-02-13 19:03] VITALS: BP 109/63; PULSE 86; RESP 18; O2SAT 99
[2024-02-13] MEDS: oxyCODONE 5 MG Tablet PO (19:35)
[2024-02-13 20:00] VITALS: BP 110/64; PULSE 82; RESP 16; O2SAT 99
[2024-02-13 20:33] VITALS: BP 110/64; PULSE 82; RESP 16; TEMP 36.9; O2SAT 99
[2024-02-13] MEDS: Doxycycline 100 MG CAPSULE PO (20:35)
[2024-02-13] MEDS: Ceftriaxone 500 MG Vial IM (20:37)
== END 2024-02-13 21:04 | disposition home or self-care (01) ==
PROVIDERS: Physician Assistant; Emergency Provider Emergency Medicine; Visit Provider Emergency Medicine
DX: N45.1 Epididymitis (principal); N50.82 Scrotal pain; F17.290 Nicotine dependence, other tobacco product, uncomplicated
CPT/HCPCS: 76870; 81001; 87086; 87491; 87591; 93976; 96372; 96374; 96375; 99284; A4216; J2405